=== PATIENT | female | born 1960 | race Hispanic/Latino ===

== ENCOUNTER 2018-10-22 12:26 | Emergency (ER) | payer OTHER ==
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
[2018-10-22] MEDS ORDERED: NACL 0.9% 1000 ML 2,000 ML IV ONE (13:02)
[2018-10-22] MEDS ORDERED: HALDOL IM PRN (13:02)
[2018-10-22] MEDS ORDERED: NACL 0.9% 1000 ML 1,000 ML IV ONE (13:02)
[2018-10-22] MEDS ORDERED: ATIVAN IM PRN (13:02)
[2018-10-22 13:20] LABS: Hematocrit 36.2 % (30.3-42.9); Hemoglobin 12.4 gm/dl (10.1-14.3); Mean Corpuscular HGB Conc 34 % (30-34); Mean Corpuscular Volume 92 fl (79-97); Platelet Count 292 K/mm3 (140-440); Red Blood Count 3.92 M/mm3 (3.65-5.03); Red Cell Distribution Width 13.4 % (13.2-15.2)
[2018-10-22 13:29] LABS: INR 1.15 (0.87-1.13)
--- NOTE | 2018-10-22 13:41 | XRay Report ---
CHEST 1 VIEW 10/22/2018 1:19 PM INDICATION / CLINICAL INFORMATION: Tachycardia. COMPARISON: None available. FINDINGS: SUPPORT DEVICES: None. HEART / MEDIASTINUM: No significant abnormality. LUNGS / PLEURA: No significant pulmonary or pleural abnormality. No pneumothorax. ADDITIONAL FINDINGS: No significant additional findings. IMPRESSION: 1. No acute findings. Signer Name: Parag Moe MD Signed: 10/22/2018 1:37 PM Workstation Name: [id number]
[2018-10-22 14:06] LABS: Albumin 3.5 g/dL (3.9-5); Calcium 9.5 mg/dL (8.4-10.2)
[2018-10-22 14:53] LABS: Bilirubin,Urine NEG (Negative); Blood,Urine NEG (Negative); Color,Urine Amber (Yellow); Mucus,Urine 3+ /HPF; Urobilinogen,Urine < 2.0 mg/dL (<2.0)
[2018-10-22] MEDS ORDERED: KCL 10MEQ/100ML 10 MEQ/100 ML BAG IV SCH (15:00)
[2018-10-22] MEDS ORDERED: POTASSIUM CHLORIDE FEEDTUBE ONE (15:38)
--- NOTE | 2018-10-22 16:24 | Cat Scan Report ---
CT ABDOMEN AND PELVIS WITHOUT CONTRAST INDICATION / CLINICAL INFORMATION: Generalized abdominal pain. TECHNIQUE: Axial CT images were obtained through the abdomen and pelvis without IV contrast. Sagittal and kong l reformatted images. All CT scans at this location are performed using CT dose reduction for ALARA b y means of automated exposure control. COMPARISON: None available. FINDINGS: LOWER CHEST: No significant abnormality. LIVER: There is moderate diffuse fatty infiltration throughout the liver. GALLBLADDER: Cholecystectomy is suspected. BILE DUCTS: No significant abnormality. PANCREAS: No significant abnormality. SPLEEN: No significant abnormality. ADRENALS: No significant abnormality. RIGHT KIDNEY and URETER: No significant abnormality. LEFT KIDNEY and URETER: No significant abnormality. STOMACH and SMALL BOWEL: No significant abnormality. COLON: No significant abnormality. APPENDIX: No significant abnormality. PERITONEUM: No free fluid. No free air. No fluid collection. LYMPH NODES: No significant adenopathy. AORTA and ARTERIES: No significant abnormality. IVC and VEINS: No significant abnormality. URINARY BLADDER: The bladder is partially empty. There may be mild diffuse bladder wall thickening. C orrelate for cystitis. REPRODUCTIVE ORGANS: A 4.1 x 3.4 cm right ovarian cyst is identified. The uterus and left ovary are u nremarkable. ADDITIONAL FINDINGS: None. SKELETAL SYSTEM: 5 mm anterolisthesis of L4 with respect to L5 appears to be secondary to degenerativ e facet arthropathy. No acute fracture or bone lesion. IMPRESSION: 4.1 x 3.4 cm right ovarian cyst. The bladder is poorly distended but there is suggestion bladder wall thickening. Correlate for cystit is. Hepatic steatosis. Cholecystectomy. Signer Name: Paul Wagner Jr, MD Signed: 10/22/2018 4:19 PM Workstation Name: [id number]
[2018-10-22 17:41] VITALS: BP 104/67
== END 2018-10-22 19:12 ==
LOC: ED 12:26
DX: E86.0 Dehydration (principal); E03.9 Hypothyroidism, unspecified
CPT/HCPCS: 36415; 71045; 74176; 80053; 81001; 83735; 84443; 85027; 85610; 93005; 93010; 96360; 96361; 96372; 99285; G0480; J1630; J2060; J7030; 80320